=== PATIENT | male | born 1965 | race African-American/Black ===

== ENCOUNTER 2017-11-22 15:52 | Inpatient (IN) | payer OTHER ==
[2017-11-22 19:29] VITALS: BMI 31.2
--- NOTE | 2017-11-22 21:15 | HP ---
Admission ROS S - [facility] Chief Complaint: I WANT TO GO TO REHAB Allergies/Adverse Reactions: Allergies Allergy/AdvReac Type Severity Reaction Status Date / Time Pork/Porcine Containing AdvReac Verified 11/22/17 21:18 Products History of Present Illness: 51 YEARS OLD MALE WITH LONG HISTORY OF ALCOHOL NICOTINE COCAINE DEPENDENCE COMPLETED ALCOHOL DETOX AT [facility] TODAY 11/22/17 HAS HYPERTENSION DIABETES II ASTHMA HAS BIPOLAR II IS ADMITTED TO REHAB Exam Limitations: No Limitations - Ebola screening Have you traveled outside of the country in the last 21 days: No Have you had contact with anyone from an Ebola affected area: No Have you been sick,other than usual withdrawal symptoms: No Do you have a fever: No - Review of Systems Constitutional: Weight Stable EENT: reports: No Symptoms Reported Respiratory: reports: SOB with Exertion Cardiac: reports: No Symptoms Reported GI: reports: Indigestion : reports: No Symptoms Reported Musculoskeletal: reports: Joint Pain (RIGHT SHOULDER = ARTHRITIS = TREATED WITH NAPROXIN) Integumentary: reports: Dryness Neuro: reports: No Symptoms reported Endocrine: reports: Increased Urine Hematology: reports: No Symptoms Reported Psychiatric: reports: Judgement Intact, Orientated x3, Anxious, Depressed Other Systems: Reviewed and Negative Patient History - Patient Medical History Hx Anemia: No Hx Asthma: Yes Hx Chronic Obstructive Pulmonary Disease (COPD): No Hx Cancer: No Hx Cardiac Disorders: No Hx Congestive Heart Failure: No Hx Hypertension: Yes Hx Hypercholesterolemia: No Hx Pacemaker: No HX Cerebrovascular Accident: No Hx Seizures: No Hx Dementia: No Hx Diabetes: Yes Hx Gastrointestinal Disorders: Yes Hx Liver Disease: No Hx Genitourinary Disorders: No Hx Sexually Transmitted Disorders: No Hx Renal Disease (ESRD): No Hx Thyroid Disease: No Hx Human Immunodeficiency Virus (HIV): No Hx Hepatitis C: No Hx Depression: No Hx Suicide Attempt: No Hx Bipolar Disorder: Yes Hx Schizophrenia: No - Patient Surgical History Past Surgical History: No - PPD History Previous Implant?: Yes Documented Results: Negative w/o proof Implanted On Prior [facility] Admission?: No PPD to be Administered?: Yes - Smoking Cessation Smoking history: Current every day smoker Have you smoked in the past 12 months: Yes Aproximately how many cigarettes per day: 10 Cigars Per Day: 0 Hx Chewing Tobacco Use: No Initiated information on smoking cessation: Yes 'Breaking Loose' booklet given: 11/22/17 - Substance & Tx. History Hx Alcohol Use: Yes Hx Substance Use: Yes Substance Use Type: Alcohol, Cocaine Hx Substance Use Treatment: Yes (11/2017 [facility]) - Substances Abused Alcohol Route: Oral Frequency: Daily Amount used: [place] Age of first use: 9 Date of Last Use: 11/17/17 Cocaine Route: Smoking Frequency: Daily Amount used: 300$ Age of first use: 31 Date of Last Use: 11/16/17 Family Disease History - Family Disease History Family Disease History: Respiratory: Mother (), Other: Father (/ NO CONTACT), Mother Admission Physical Exam [facility] - Vital Signs Vital Signs: Vital Signs - 24 hr 11/22/17 19:27 Temperature 97.2 F L Pulse Rate 84 Respiratory 18 Rate Blood Pressure 143/79 - Physical General Appearance: Yes: No Apparent Distress, Appropriately Dressed, Obese HEENTM: Yes: Hearing grossly Normal, Normal ENT Inspection, Normocephalic, Normal Voice Respiratory: Yes: Chest Non-Tender, No Respiratory Distress, No Accessory Muscle Use, Wheezing Neck: Yes: Supple, Trachea in good position Breast: Yes: Breasts Symetrical Cardiology: Yes: Regular Rhythm, Regular Rate, S1, S2 Abdominal: Yes: Normal Bowel Sounds, Non Tender, Soft Genitourinary: Yes: Within Normal Limits Back: Yes: Normal Inspection Musculoskeletal: Yes: full range of Motion, Gait Steady Extremities: Yes: Normal Range of Motion, Non-Tender Neurological: Yes: Fully Oriented, Alert, Motor Strength 5/5, Normal Response, Depressed Affect Integumentary: Yes: Dry, Warm Lymphatic: Yes: Within Normal Limits - Diagnostic (1) Alcohol dependence with uncomplicated withdrawal Current Visit: Yes Status: Acute (2) Hypertension Current Visit: Yes Status: Chronic Qualifiers: Hypertension type: essential hypertension Qualified Code(s): I10 - Essential (primary) hypertension (3) Nicotine dependence Current Visit: Yes Status: Acute Qualifiers: Nicotine product type: cigarettes Substance use status: in withdrawal Qualified Code(s): F17.213 - Nicotine dependence, cigarettes, with withdrawal (4) Diabetes mellitus type II, controlled Current Visit: Yes Status: Chronic Qualifiers: Diabetes mellitus complication status: without complication Diabetes mellitus long term acute care registered nurse insulin use: without fdc use Qualified Code(s): E11.9 - Type 2 diabetes mellitus without complications (5) Asthma Current Visit: Yes Status: Chronic Qualifiers: Asthma severity: mild Asthma persistence: intermittent Asthma complication type: with status asthmaticus Qualified Code(s): J45.22 - Mild intermittent asthma with status asthmaticus (6) Schizophrenia Current Visit: Yes Status: Suspected Qualifiers: Schizophrenia type: other Qualified Code(s): F20.89 - Other schizophrenia; F20.8 - Other schizophrenia (7) Arthritis of right shoulder region Current Visit: Yes Status: Chronic Cleared for Admission [facility] - Detox or Rehab [facility] Level of Care: Observation Bed Detox Regimen/Protocol: Not Applicable Claeared for Rehab Admission: Yes [facility] Breath Alcohol Content Breath Alcohol Content: 0 Urine Drug Screen - Results Drug Screen Negative: No Urine Drug Screen Results: BZO-Benzodiazepines Inpatient Rehab Admission - Initial Determination Are CD services needed?: Yes Free of communicable disease: Yes Not in need of hospitalization: Yes - Rehab Admission Criteria Previous failed treatment: Yes Poor recovery environment: Yes Comorbidities: Yes Lacks judgement: No Patient is meeting Inpatient Rehab admission criteria:: Yes
[2017-11-22] MEDS ORDERED: P-EPHED 60MG/TRIPROLIDI 2.5MG TABLET PO PRN (21:38)
[2017-11-22] MEDS ORDERED: guaiFENesin/D-METHORPHAN HB 10 ML UNIT-DOSE CUPS PO PRN (21:38)
[2017-11-22] MEDS ORDERED: MENTHOL/PHENOL 1 EACH UD MM PRN (21:38)
[2017-11-22] MEDS ORDERED: MAGNESIUM HYDROX 2400MG/30ML ORAL SUSPENSION 30 ML CUP PO PRN (21:38)
[2017-11-22] MEDS ORDERED: MAG HYDROX/AL HYDROX/SIMETH 30 ML UNIT-DOSE CUP PO PRN (21:38)
[2017-11-22] MEDS ORDERED: ACETAMINOPHEN 325 MG TABLET (FP) PO PRN (21:38)
[2017-11-22] MEDS ORDERED: MAGNESIUM CITRATE 300 ML BOTTLE PO PRN (21:38)
[2017-11-22] MEDS ORDERED: LOPERAMIDE HCL 2 MG CAPSULE PO PRN (21:38)
[2017-11-22] MEDS ORDERED: NICOTINE POLACRILEX 2 MG GUM BUC PRN (21:38)
[2017-11-22] MEDS ORDERED: NAPROXEN 500 MG TABLET (FP) PO PRN (21:42)
[2017-11-22] MEDS ORDERED: ALBUTEROL SO4 18 GM HFA INHALER IH PRN (21:43)
[2017-11-22] MEDS ORDERED: ALBUTEROL SO4 0.083% IH SOL 2.5 MG/3 ML VIAL.NEB. NEB PRN (21:44)
[2017-11-22] MEDS ORDERED: ENALAPRIL MALEATE PO SCH (22:00)
[2017-11-22] MEDS: THIAMINE HCL 100 MG TABLET (FP) PO SCH (22:50)
[2017-11-22] MEDS: MINERAL OIL/PETROLAT/WATER TOPICAL CREAM 113 GM JAR TP SCH (22:52)
[2017-11-22] MEDS ORDERED: QUEtiapine FUMARATE 100 MG TABLET (FP) PO SCH (23:15)
[2017-11-22 23:31] LABS: URINE APPEARANCE CLEAR; URINE BILIRUBIN NEGATIVE (NEGATIVE); URINE BLOOD NEGATIVE (NEGATIVE); URINE COLOR YELLOW; URINE GLUCOSE (UA) NEGATIVE (NEGATIVE); URINE KETONE NEGATIVE (NEGATIVE); URINE LEUK ESTERASE NEGATIVE (NEGATIVE); URINE NITRITE NEGATIVE (NEGATIVE); URINE PROTEIN NEGATIVE (NEGATIVE); URINE UROBILINOGEN NEGATIVE mg/dL (0.2-1.0)
[2017-11-23] MEDS ORDERED: PATIENT'S OWN MEDICATION (NON-FORMULARY) (Metformin Hcl [Metformin Hcl Er] 500 MG) PO SCH (07:00)
--- NOTE | 2017-11-23 08:53 | PN ---
[facility] Progress Note (SOAP) Subjective: patient c/o not recieving medications which he brought from [facility] Objective: 11/23/17 08:52 Vital Signs - 24 hr 11/22/17 11/23/17 11/23/17 19:27 00:30 03:29 Temperature 97.2 F L Pulse Rate 84 Respiratory 18 20 20 Rate Blood Pressure 143/79 11/23/17 06:52 Temperature 97.4 F L Pulse Rate 80 Respiratory 18 Rate Blood Pressure 135/70 Laboratory Tests 11/22/17 21:44 Urine Color Yellow Urine Appearance Clear Urine pH 6.0 Ur Specific [place] 1.019 Urine Protein Negative Urine Glucose (UA) Negative Urine Ketones Negative Urine Blood Negative Urine Nitrite Negative Urine Bilirubin Negative Urine Urobilinogen Negative Ur Leukocyte Esterase Negative labs still pending Assessment: 11/23/17 08:52 medications ordered will discuss with nurse to administer home medications.
[2017-11-23] MEDS: PRENATAL VITAMINS W/ FOLIC ACID TABLET (FP) PO SCH (09:34)
[2017-11-23] MEDS: NICOTINE 14 MG/24 HOURS TOPICAL PATCH TD SCH (09:34)
[2017-11-23] MEDS: PANTOPRAZOLE 40 MG TABLET (FP) PO SCH (09:34)
[2017-11-23] MEDS: ENALAPRIL MALEATE 5 MG TABLET (FP) PO SCH ×2 (09:34→21:04)
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
[2017-11-23] MEDS ORDERED: QUEtiapine FUMARATE 50 MG TABLET PO SCH (10:00)
[2017-11-23] MEDS ORDERED: PATIENT'S OWN MEDICATION (NON-FORMULARY) (Famotidine [Pepcid -] 40 MG) PO SCH (10:00)
[2017-11-23 10:48] LABS: HEMATOCRIT 43.1 % (35.4-49); HEMOGLOBIN 14.3 GM/dL (11.7-16.9); MCH 31.2 pg (25.7-33.7); MCHC 33.1 g/dl (32.0-35.9); MEAN CELL VOLUME 94.2 fl (80-96); MEAN PLT VOLUME 9.6 fl (7.5-11.1); PLATELET COUNT 194 K/MM3 (134-434); RBC 4.57 M/mm3 (4.00-5.60); RDW 15.7 % (11.9-15.9); WHITE BLOOD COUNT 6.9 K/mm3 (4.0-10.0)
[2017-11-23 10:56] LABS: CHLORIDE 107 mmol/L (98-107); SODIUM 140 mmol/L (136-145)
[2017-11-23 11:09] LABS: ALBUMIN 3.7 g/dl (3.4-5.0); ALK PHOS 71 U/L (45-117); ANION GAP 12 (8-16); BILIRUBIN,TOTAL 0.5 mg/dL (0.2-1.0); BLOOD UREA NITROGEN 21 mg/dL (7-18); CALCIUM 8.7 mg/dL (8.5-10.1); CO2 21 mmol/L (21-32); CREATININE 1.1 mg/dL (0.7-1.3)
[2017-11-23 11:34] LABS: GLUCOSE,RANDOM 123 mg/dL (74-106)
[2017-11-23 11:35] LABS: POTASSIUM 4.3 mmol/L (3.5-5.1); SGOT/AST 37 U/L (15-37)
--- NOTE | 2017-11-23 12:36 | EKG ---
Test Reason : Blood Pressure : / mmHG Vent. Rate : 084 BPM Atrial Rate : 084 BPM P-R Int : 120 ms QRS Dur : 072 ms QT Int : 352 ms P-R-T Axes : 062 036 223 degrees QTc Int : 415 ms NORMAL SINUS RHYTHM MODERATE VOLTAGE CRITERIA FOR LVH, MAY BE NORMAL VARIANT T WAVE ABNORMALITY, CONSIDER INFEROLATERAL ISCHEMIA ABNORMAL ECG NO PREVIOUS ECGS AVAILABLE Confirmed by JESU FREED MD ([id number]) on 11/23/2017 12:36:12 PM Referred By: Confirmed By:JESU FREED MD
[2017-11-23 13:12] LABS: SGPT/ALT 73 U/L (12-78)
[2017-11-23 13:15] LABS: TOT PROT 7.1 g/dl (6.4-8.2)
[2017-11-23] MEDS ORDERED: PT OWN MED DRAWER 7, Y5N ONE (15:04)
[2017-11-23] MEDS: THIAMINE HCL 100 MG TABLET (FP) PO SCH (21:04)
[2017-11-23] MEDS: QUEtiapine FUMARATE 100 MG TABLET (FP) PO SCH (21:04)
[2017-11-23] MEDS: SUVOREXANT 10 MG TABLET PO PRN (21:05)
[2017-11-23] MEDS ORDERED: QUEtiapine FUMARATE 100 MG TABLET (FP) PO SCH (22:00)
[2017-11-23] MEDS: MINERAL OIL/PETROLAT/WATER TOPICAL CREAM 113 GM JAR TP SCH (22:36)
[2017-11-24] MEDS: metFORMIN HCL 500 MG TABLET (FP) PO SCH (06:21)
[2017-11-24] MEDS: QUEtiapine FUMARATE 25 MG TABLET (FP) PO SCH (06:21)
[2017-11-24] MEDS: ENALAPRIL MALEATE 5 MG TABLET (FP) PO SCH ×2 (09:46→21:29)
[2017-11-24] MEDS: PANTOPRAZOLE 40 MG TABLET (FP) PO SCH (09:46)
[2017-11-24] MEDS: PRENATAL VITAMINS W/ FOLIC ACID TABLET (FP) PO SCH (09:46)
[2017-11-24] MEDS: NICOTINE 14 MG/24 HOURS TOPICAL PATCH TD SCH (09:47)
[2017-11-24] MEDS ORDERED: QUEtiapine FUMARATE 25 MG TABLET (FP) PO SCH (10:00)
[2017-11-24] MEDS: THIAMINE HCL 100 MG TABLET (FP) PO SCH (21:28)
[2017-11-24] MEDS: SUVOREXANT 10 MG TABLET PO PRN (21:28)
[2017-11-24] MEDS: QUEtiapine FUMARATE 100 MG TABLET (FP) PO SCH (21:29)
[2017-11-24] MEDS: MINERAL OIL/PETROLAT/WATER TOPICAL CREAM 113 GM JAR TP SCH (21:29)
[2017-11-25] MEDS: QUEtiapine FUMARATE 25 MG TABLET (FP) PO SCH (06:29)
[2017-11-25] MEDS: metFORMIN HCL 500 MG TABLET (FP) PO SCH (07:22)
[2017-11-25] MEDS: ENALAPRIL MALEATE 5 MG TABLET (FP) PO SCH ×2 (09:45→21:51)
[2017-11-25] MEDS: PANTOPRAZOLE 40 MG TABLET (FP) PO SCH (09:45)
[2017-11-25] MEDS: PRENATAL VITAMINS W/ FOLIC ACID TABLET (FP) PO SCH (09:45)
[2017-11-25] MEDS: NICOTINE 14 MG/24 HOURS TOPICAL PATCH TD SCH (09:46)
[2017-11-25] MEDS: THIAMINE HCL 100 MG TABLET (FP) PO SCH (21:35)
[2017-11-25] MEDS: QUEtiapine FUMARATE 100 MG TABLET (FP) PO SCH (21:35)
[2017-11-25] MEDS: SUVOREXANT 10 MG TABLET PO PRN (21:36)
[2017-11-25] MEDS: MINERAL OIL/PETROLAT/WATER TOPICAL CREAM 113 GM JAR TP SCH (21:37)
[2017-11-26] MEDS: QUEtiapine FUMARATE 25 MG TABLET (FP) PO SCH (06:07)
[2017-11-26] MEDS: metFORMIN HCL 500 MG TABLET (FP) PO SCH (07:02)
[2017-11-26] MEDS: NICOTINE 14 MG/24 HOURS TOPICAL PATCH TD SCH (09:40)
[2017-11-26] MEDS: PRENATAL VITAMINS W/ FOLIC ACID TABLET (FP) PO SCH (09:40)
[2017-11-26] MEDS: ENALAPRIL MALEATE 5 MG TABLET (FP) PO SCH ×2 (09:40→21:27)
[2017-11-26] MEDS: PANTOPRAZOLE 40 MG TABLET (FP) PO SCH (09:40)
[2017-11-26] MEDS ORDERED: SUVOREXANT 10 MG TABLET PO PRN (10:37)
[2017-11-26] MEDS: ALBUTEROL SO4 2.5/IPRATROPIUM 0.5 INH SOL 3 ML VIAL.NEB. NEB SCH ×2 (18:00→21:28)
[2017-11-26] MEDS: THIAMINE HCL 100 MG TABLET (FP) PO SCH (21:27)
[2017-11-26] MEDS: SUVOREXANT 10 MG TABLET PO PRN (21:27)
[2017-11-26] MEDS: QUEtiapine FUMARATE 100 MG TABLET (FP) PO SCH (21:27)
[2017-11-26] MEDS: MINERAL OIL/PETROLAT/WATER TOPICAL CREAM 113 GM JAR TP SCH (21:29)
[2017-11-27] MEDS: metFORMIN HCL 500 MG TABLET (FP) PO SCH (06:19)
[2017-11-27] MEDS: QUEtiapine FUMARATE 25 MG TABLET (FP) PO SCH (06:19)
[2017-11-27] MEDS: PANTOPRAZOLE 40 MG TABLET (FP) PO SCH (09:26)
[2017-11-27] MEDS: PRENATAL VITAMINS W/ FOLIC ACID TABLET (FP) PO SCH (09:26)
[2017-11-27] MEDS: NICOTINE 14 MG/24 HOURS TOPICAL PATCH TD SCH (09:26)
[2017-11-27] MEDS: ENALAPRIL MALEATE 5 MG TABLET (FP) PO SCH ×2 (09:26→21:43)
[2017-11-27] MEDS: ALBUTEROL SO4 2.5/IPRATROPIUM 0.5 INH SOL 3 ML VIAL.NEB. NEB SCH ×3 (09:27→22:23)
[2017-11-27] MEDS: QUEtiapine FUMARATE 100 MG TABLET (FP) PO SCH (21:43)
[2017-11-27] MEDS: THIAMINE HCL 100 MG TABLET (FP) PO SCH (21:43)
[2017-11-27] MEDS: MINERAL OIL/PETROLAT/WATER TOPICAL CREAM 113 GM JAR TP SCH (22:23)
[2017-11-28] MEDS: QUEtiapine FUMARATE 25 MG TABLET (FP) PO SCH (06:06)
[2017-11-28 06:54] VITALS: BP 114/69; PULSE 77; TEMP 97.5
[2017-11-28] MEDS: metFORMIN HCL 500 MG TABLET (FP) PO SCH (07:26)
[2017-11-28] MEDS ORDERED: PT OWN MED DRAWER 7, Y5N ONE (09:04)
[2017-11-28] MEDS: ENALAPRIL MALEATE 5 MG TABLET (FP) PO SCH (09:14)
[2017-11-28] MEDS: NICOTINE 14 MG/24 HOURS TOPICAL PATCH TD SCH (09:14)
[2017-11-28] MEDS: PANTOPRAZOLE 40 MG TABLET (FP) PO SCH (09:14)
[2017-11-28] MEDS: PRENATAL VITAMINS W/ FOLIC ACID TABLET (FP) PO SCH (09:14)
[2017-11-28] MEDS: ALBUTEROL SO4 2.5/IPRATROPIUM 0.5 INH SOL 3 ML VIAL.NEB. NEB SCH (09:16)
--- NOTE | 2017-11-28 09:24 | PN ---
Psychiatric Progress Note Vital Signs: Vital Signs Period Temp Pulse Resp BP Sys/Lira Pulse Ox Last 24 Hr 97.5 F 73-78 18-20 114-121/67-77 Date of Session: 11/28/17 Chief Complaint:: AMA Discharge Note HPI: Patient addressing Alcoho and Cocaine Dependence comorbid with Nicotine dependence, Schizoaffective Disorder, Substance-induced Mood Disorder, Substance -Induced Sleep Disorder ROS: Arthritis of right shoulder, type 2 DM, HTN Current Medications: Active Medications Generic Name Dose Route Start Last Admin Trade Name Freq PRN Reason Stop Dose Admin Acetaminophen 650 mg 11/22/17 21:38 Tylenol - PO Q4H PRN FEVER Al Hydroxide/Mg Hydroxide 30 ml 11/22/17 21:38 Mylanta Oral Suspension - PO Q6H PRN DYSPEPSIA Albuterol Sulfate 2 puff 11/22/17 21:43 11/25/17 09:46 Ventolin Hfa Inhaler - IH 2 puff Q4H PRN Administration ASTHMA Albuterol/Ipratropium 1 amp 11/26/17 18:00 11/28/17 09:16 Duoneb - NEB Not Given QID [facility] Enalapril Maleate 5 mg 11/23/17 10:00 11/28/17 09:14 Vasotec - PO 5 mg BID [facility] Administration Eucalyptus/Menthol/Phenol/Sorbitol 1 each 11/22/17 21:38 Cepastat Lozenge - MM Q4H PRN SORE THROAT Guaifenesin 10 ml 11/22/17 21:38 Robitussin Dm - PO Q6H PRN COUGH Loperamide HCl 4 mg 11/22/17 21:38 Imodium - PO Q6H PRN DIARRHEA Magnesium Citrate 300 ml 11/22/17 21:38 Citroma - PO Q48H PRN CONSTIPATION Magnesium Hydroxide 30 ml 11/22/17 21:38 Milk Of Magnesia - PO DAILY PRN CONSTIPATION Metformin HCl 500 mg 11/24/17 07:00 11/28/17 07:26 Glucophage - PO 500 mg DAILY@0700 [facility] Administration Multi-Ingredient Lotion 1 applic 11/22/17 22:00 11/27/17 22:23 Eucerin (Small Jar) - TP 1 applic HS [facility] Administration Naproxen 500 mg 11/22/17 21:42 Naprosyn - PO BID PRN PAIN LEVEL 6-10 Nicotine 14 mg 11/23/17 10:00 11/28/17 09:14 Nicoderm Patch - TD 14 mg DAILY DANIELLE Administration Nicotine Polacrilex 2 mg 11/22/17 21:38 Nicorette Gum - BUC Q2H PRN NICOTINE REPLACEMENT RX Pantoprazole Sodium 40 mg 11/23/17 10:00 11/28/17 09:14 Protonix - PO 40 mg DAILY DANIELLE Administration Multivit/Folic Acid/Iron 1 tab 11/23/17 10:00 11/28/17 09:14 Vitamins ([facility]) - PO 1 tab DAILY DANIELLE Administration Pseudoephedrine/Triprolidine 1 combo 11/22/17 21:38 Actifed - PO TID PRN NASAL CONGESTION Quetiapine Fumarate 25 mg 11/24/17 07:00 11/28/17 06:06 Seroquel - PO 25 mg AM DANIELLE Administration Quetiapine Fumarate 100 mg 11/23/17 22:00 11/27/17 21:43 Seroquel - PO 100 mg HS DANIELLE Administration Thiamine HCl 100 mg 11/22/17 22:00 11/27/17 21:43 Vitamin B1 - PO 100 mg HS DANIELLE Administration Current Side Effect: No Lab tests ordered: No Lab tests reviewed: Yes Provider note:: Patient has not completed the program. He wants to leave [place] saying:"I don't want to be here anymore". He is determined to leave despite encouragement to stay and complete the program. He is on Seroquel and does not want script to be electronically transmitted to his pharmacy saying:" I have enough medication to last till a next appointment with my psychiatrist". He is stable for leaving [place] today Total face to face time:: 25 Mental Status Exam - Mental Status Exam Alert and Oriented to: Time, Place, Person Cognitive Function: Fair Patient Appearance: Well Groomed Mood: Hopeful, Euthymic Affect: Appropriate Patient Behavior: Cooperative Speech Pattern: Clear, Artificially Ventilated Thought Process: Intact, Goal Oriented Thought Disorder: Not Present Hallucinations: Denies Suicidal Ideation: Denies Homicidal Ideation: Denies Insight/Judgement: Poor Sleep: Fair Appetite: Good Muscle strength/Tone: Normal Gait/Station: Normal Psychiatric Treatment Plan - Problem List (1) Alcohol dependence Current Visit: Yes (2) Cocaine dependence Current Visit: Yes (3) Nicotine dependence Current Visit: Yes Qualifiers: Nicotine product type: cigarettes Substance use status: in withdrawal Qualified Code(s): F17.213 - Nicotine dependence, cigarettes, with withdrawal (4) Schizoaffective disorder Current Visit: Yes (5) Arthritis of right shoulder region Current Visit: Yes (6) Asthma Current Visit: Yes Qualifiers: Asthma severity: mild Asthma persistence: intermittent Asthma complication type: with status asthmaticus Qualified Code(s): J45.22 - Mild intermittent asthma with status asthmaticus (7) Diabetes mellitus type II, controlled Current Visit: Yes Qualifiers: Diabetes mellitus complication status: without complication Diabetes mellitus residential insulin use: without buttermaker use Qualified Code(s): E11.9 - Type 2 diabetes mellitus without complications (8) Hypertension Current Visit: Yes Qualifiers: Hypertension type: essential hypertension Qualified Code(s): I10 - Essential (primary) hypertension Initial treatment plan: Patient is leaving A
== END 2017-11-28 09:20 | disposition left against medical advice (07) | DRG 770 ==
LOC: YASAS 15:52 → Y3W 19:15
PROVIDERS: ADMIT Psychiatry & Neurology Psychiatry; ATTEND Psychiatry & Neurology Psychiatry
PROC: HZ42ZZZ Group Counseling for Substance Abuse Treatment, Cognitive-Behavioral (ICD-10-PCS; principal; 2017-11-22)
DX: F10.20 Alcohol dependence, uncomplicated (principal); F14.20 Cocaine dependence, uncomplicated; F17.213 Nicotine dependence, cigarettes, with withdrawal; F25.9 Schizoaffective disorder, unspecified; F20.89 Other schizophrenia; I10 Essential (primary) hypertension; E11.9 Type 2 diabetes mellitus without complications; J45.22 Mild intermittent asthma with status asthmaticus; M13.811 Other specified arthritis, right shoulder; K21.9 Gastro-esophageal reflux disease without esophagitis; E66.9 Obesity, unspecified; Z68.31 Body mass index [BMI] 31.0-31.9, adult; Z91.018 Allergy to other foods; Z79.84 Long term (current) use of oral hypoglycemic drugs; Z59.0 Homelessness
CPT/HCPCS: 36415; 80053; 81003; 82962; 85027; 86593; 87389; 93005; 93010; 94640